=== PATIENT | female | born 1980 | race Caucasian/White ===

== ENCOUNTER 2016-11-26 22:31 | Observation (INO) | payer OTHER ==
[~2016-11-26] VITALS: Ht 149.9 cm; Wt 66.2 kg
[~2016-11-26 22:31] MED LIST: IBUP-1542 PO
[2016-11-27] VITALS (19 sets, daily range): BP systolic 81–118; BP diastolic 35–59; PULSE 55–80; RESP 17; TEMP 98.1; Ht 149.9 cm; Wt 66.2 kg
[2016-11-27 00:19] LABS: URINE BLOOD (Dip) POC 3+ (NEGATIVE)
[2016-11-27 00:36] LABS: BASOPHILS % 0.4 % (0.0-2.0); EOSINOPHILS # 0.2 10^3/ul (0.0-0.5); EOSINOPHILS % 1.9 % (0.0-7.0); HEMATOCRIT 35.4 % (37.0-47.0); HEMOGLOBIN 11.7 g/dl (12.0-16.0); LYMPHOCYTES # 2.5 10^3/ul (0.8-2.9); LYMPHOCYTES % 21.8 % (15.0-51.0); MEAN CORPUSCULAR HEMOGLOBIN 28.7 pg (29.0-33.0); MEAN CORPUSCULAR HGB CONC 33.1 g/dl (32.0-37.0); MEAN CORPUSCULAR VOLUME 86.8 fl (82.0-101.0); MEAN PLATELET VOLUME 11.6 fl (7.4-10.4); MONOCYTE # 0.7 10^3/ul (0.3-0.9); MONOCYTES % 6.5 % (0.0-11.0); NEUTROPHIL # 7.8 10^3/ul (1.6-7.5); PLATELET COUNT 273 10^3/UL (140-415); RED BLOOD COUNT 4.08 10^6/ul (4.20-5.40); RED CELL DISTRIBUTION WIDTH 13.2 % (11.5-14.5); WHITE BLOOD COUNT 11.3 10^3/ul (4.8-10.8)
[2016-11-27 01:01] LABS: ALBUMIN 3.9 g/dl (3.3-4.9); ALBUMIN/GLOBULIN RATIO 1.18; CALCIUM 9.1 mg/dl (8.4-10.2); CREATININE 0.76 mg/dl (0.44-1.00); POTASSIUM 3.5 mmol/L (3.5-5.1); TOTAL PROTEIN 7.2 g/dl (6.1-8.1)
--- NOTE | 2016-11-27 01:33 | RADRPT ---
PROCEDURE: US OB. CLINICAL INDICATION: Vaginal bleeding. Clinical estimated gestational age is 8 weeks 4 days with estimated date of delivery 07/04/2017. TECHNIQUE: Transabdominal and transvaginal views of the pelvis are available for review. COMPARISON: No prior studies are available for comparison. FINDINGS: No intrauterine is seen. There is thickened heterogeneous echotexture endometrium with va scular flow. The thickness of the endometrium equals 1.9 cm. Small Nabothian cyst in cervix. The ri ght ovary measures 2.7 x 0.8 x 1.5 cm and is unremarkable. Color flow and spectral analysis demonst rates normal venous flow in the right ovary. The left ovary measures 2.6 x 1.4 x 2.3 cm and contain s a 1.6 x 1.4 x 1.4 cm likely corpus luteum. Color flow and spectral analysis demonstrates normal a rterial and venous flow in the left ovary. No adnexal mass or free intrapelvic fluid is seen. IMPRESSION: No intrauterine seen. No ectopic seen. Thickened heterogeneous endometrium with vascular flow. Differential diagnosis includes early intrauterine , spontaneous wi th retained products of conception and ectopic . Correlation with serial quantitative beta HCGs and follow-up ultrasound is recommended. RPTAT: HJES .Dixon Frost MD, Date Time Electronically viewed and signed by .Dixon Frost MD, on 11/27/2016 01:32 .S/
--- NOTE | 2016-11-27 04:26 | ERA ---
ER Documentation Chief Complaint Date/Time DATE: 11/27/16 TIME: 04:20 Chief Complaint heavy vag bleeding w/ blood clots today, unknown HPI This is a 36-year-old female A1 with last menstrual period 1-1/2 months ago who recently had a baby 8 months ago presents to the emergency department complaining of heavy vaginal bleeding with blood clots that started today. Patient states that she has been changing her pad every 5 minutes. Patient admits to having pelvic pain stating that it is mild cramping. Patient admits to having nausea and dizziness. She denies any vomiting, diarrhea, constipation. Patient states her last meal was at 7 PM today ROS All systems reviewed and are negative except as per history of present illness. Medications Home Meds Active Scripts Ibuprofen* (Ibuprofen*) 600 Mg Tablet, 600 MG PO Q6H Y for PAIN, #20 TAB 0 Refills Prov:JOSE MEJIA MD 03/17/16 Allergies Allergies: Coded Allergies: No Known Allergy (Unverified , 10/10/12) PMhx/Soc Anesthesia Reaction: No Hx Neurological Disorder: No Hx Respiratory Disorders: No Hx Cardiac Disorders: No Hx Psychiatric Problems: No Hx Miscellaneous Medical Probl: No Hx Alcohol Use: No Hx Substance Use: No Hx Tobacco Use: No Physical Exam Vitals Vital Signs Date Time Temp Pulse Resp B/P Pulse Ox O2 Delivery O2 Flow Rate FiO2 11/26/16 22:35 97.8 89 20 112/70 99 Physical Exam General: well-developed/well-nourished, in no apparent distress, non-toxic appearing HENT: NC/AT Eyes: Conjunctiva normal Neck: Supple Pulm: CTA bilaterally, normal breathing CV: Normal S1S2 GI: Soft, non-distended, normal bowel sounds, mild tender palpation Back: No midline tenderness, no masses, No CVAT Ext: No clubbing, cyanosis, or edema Neuro: Alert and orientated Skin: intact, normal turgor Psych: Normal mood and mentation Result Diagram: 11/27/16 0000 11/27/16 0000 Results 24 hrs Laboratory Tests Test 11/27/16 00:00 11/27/16 00:24 White Blood Count 11.310^3/ul Red Blood Count 4.0810^6/ul Hemoglobin 11.7g/dl Hematocrit 35.4% Mean Corpuscular Volume 86.8fl Mean Corpuscular Hemoglobin 28.7pg Mean Corpuscular Hemoglobin Concent 33.1g/dl Red Cell Distribution Width 13.2% Platelet Count 78748^3/UL Mean Platelet Volume 11.6fl Neutrophils % 69.0% Lymphocytes % 21.8% Monocytes % 6.5% Eosinophils % 1.9% Basophils % 0.4% Nucleated Red Blood Cells % 0.0/100WBC Neutrophils # 7.810^3/ul Lymphocytes # 2.510^3/ul Monocytes # 0.710^3/ul Eosinophils # 0.210^3/ul Basophils # 0.010^3/ul Nucleated Red Blood Cells # 0.010^3/ul Sodium Level 141mmol/L Potassium Level 3.5mmol/L Chloride Level 102mmol/L Carbon Dioxide Level 25mmol/L Anion Gap 18 Blood Urea Nitrogen 12mg/dl Creatinine 0.76mg/dl Glucose Level 114mg/dl Calcium Level 9.1mg/dl Total Bilirubin 0.0mg/dl Direct Bilirubin 0.00mg/dl Indirect Bilirubin 0.0mg/dl Aspartate Amino Transf (AST/SGOT) 15IU/L Alanine Aminotransferase (ALT/SGPT) 20IU/L Alkaline Phosphatase 59IU/L Total Protein 7.2g/dl Albumin 3.9g/dl Globulin 3.30g/dl Albumin/Globulin Ratio 1.18 Beta HCG, Quantitative 43076.0mIU/ml Bedside Urine pH (LAB) 5.5 Bedside Urine Protein (LAB) 1+ Bedside Urine Glucose (UA) Negative Bedside Urine Ketones (LAB) Negative Bedside Urine Blood 3+ Bedside Urine Nitrite (LAB) Negative Bedside Urine Leukocyte Esterase (L Negative Procedures/MDM This is a 36-year-old female A1 presenting to the emergency department with heavy vaginal bleeding and positive urine test today. With no intrauterine noted on ultrasound and a elevated beta-hCG of 12,875 I have consulted the OB labor is Dr. Booker who suggested that patient should be admitted to [facility] for further evaluation and management. Patient is hemodynamically stable for transfer IV access established, patient had mild anemia at 11.7. No leukocytosis. CMP unremarkable. Urinalysis showed hemoglobin. OB ultrasound was done and radiologist stated: No intrauterine seen. No ectopic seen. Thickened heterogeneous endometrium with vascular flow. Differential diagnosis includes early intrauterine , spontaneous with retained products of conception and ectopic . Correlation with serial quantitative beta HCGs and follow-up ultrasound is recommended. Departure Diagnosis: Primary Impression: Excessive vaginal bleeding Condition: Stable ZAFAR DIALLO PA-C Nov 27, 2016 04:26
[2016-11-27] MEDS ORDERED: DEXTROSE 5%-0.45% NACL 1,000 ML IV SCH (09:30)
[2016-11-27] MEDS ORDERED: SEVOFLURANE 15 MIN ONE (11:00)
[2016-11-27] MEDS ORDERED: PROPOFOL 20 ML ONE (11:48)
[2016-11-27] MEDS ORDERED: FENTAnyl 50 MCG/ML VIAL ONE (11:49)
[2016-11-27] MEDS ORDERED: MIDAZOLAM 1 MG/ML 2 ML INJ ONE (11:49)
[2016-11-27] MEDS ORDERED: PHENYLephrine (100 MCG/ML) 5ML SYG ONE (11:55)
[2016-11-27] MEDS ORDERED: CEFAZOLIN 1 GM INJ ONE (11:55)
[2016-11-27] MEDS ORDERED: METOCLOPRAMIDE 10 MG INJ ONE (12:08)
[2016-11-27] MEDS ORDERED: KETOROLAC 30 MG INJ ONE (12:08)
[2016-11-27] MEDS ORDERED: ONDANSETRON 4 MG INJ ONE (12:08)
[2016-11-27] MEDS ORDERED: EPHEDrine SULFATE 50 MG/5 ML SYG ONE (12:23)
[2016-11-27] MEDS ORDERED: ONDANSETRON 4 MG INJ IV PRN ×2 (12:30)
[2016-11-27] MEDS ORDERED: DEXTROSE 5%-LR 1,000 ML IV SCH (12:30)
[2016-11-27] MEDS ORDERED: MEPERIDINE 25 MG INJ IV PRN (12:30)
[2016-11-27] MEDS ORDERED: ALBUMIN HUMAN 5% 250 ML IV PRN (12:30)
[2016-11-27] MEDS ORDERED: FENTAnyl 50 MCG/ML VIAL IV PRN ×3 (12:30)
[2016-11-27] MEDS ORDERED: DIPHENHYDRAMINE 50 MG INJ IV PRN (12:30)
[2016-11-27] MEDS ORDERED: morphine (1 MG/ML) 10ML SYRINGE IV PRN ×3 (12:30)
[2016-11-27] MEDS ORDERED: METOCLOPRAMIDE 10 MG INJ IV PRN (12:30)
[2016-11-27] MEDS ORDERED: OXYCODONE/ACETAMINOPHEN (10/325) TAB PO PRN (12:30)
[2016-11-27] MEDS ORDERED: EPHEDrine SULFATE 50 MG/5 ML SYG IV PRN (12:30)
--- NOTE | 2016-11-27 21:29 | DS ---
Date/Time of Note Date/Time of Note DATE: 11/27/16 TIME: 21:25 Discharge Summary Admission/Discharge Info Admit Date/Time Nov 27, 2016 at 01:54 Discharge Date/Time Nov 27, 2016 at 18:09 Discharge Diagnosis retained placenta Procedures suction curettage Hx of Present Illness s/p 2weeks presented ER with heavy vaginal bleeding ,u/s revealed suggestionof retained tissue.underwent suction curettage postpo H&H down to 11/12 no significant vaginal bleeding noted Hospital Course unevenful Home Meds Active Scripts Ibuprofen* (Ibuprofen*) 600 Mg Tablet, 600 MG PO Q6H Y for PAIN, #20 TAB 0 Refills Prov:JOSE MEJIA MD 03/17/16 Follow-up Plan 2weeks to her OB Primary Care Provider Not On Staff Doctor Time spent on discharge: < 30 minutes Pending Labs Laboratory Tests Test 11/27/16 00:00 11/27/16 00:24 White Blood Count 11.310^3/ul (4.8-10.8) Red Blood Count 4.0810^6/ul (4.20-5.40) Hemoglobin 11.7g/dl (12.0-16.0) Hematocrit 35.4% (37.0-47.0) Mean Corpuscular Volume 86.8fl (82.0-101.0) Mean Corpuscular Hemoglobin 28.7pg (29.0-33.0) Mean Corpuscular Hemoglobin Concent 33.1g/dl (32.0-37.0) Red Cell Distribution Width 13.2% (11.5-14.5) Platelet Count 14869^3/UL (140-415) Mean Platelet Volume 11.6fl (7.4-10.4) Neutrophils % 69.0% (39.0-77.0) Lymphocytes % 21.8% (15.0-51.0) Monocytes % 6.5% (0.0-11.0) Eosinophils % 1.9% (0.0-7.0) Basophils % 0.4% (0.0-2.0) Nucleated Red Blood Cells % 0.0/100WBC (0.0-0.0) Neutrophils # 7.810^3/ul (1.6-7.5) Lymphocytes # 2.510^3/ul (0.8-2.9) Monocytes # 0.710^3/ul (0.3-0.9) Eosinophils # 0.210^3/ul (0.0-0.5) Basophils # 0.010^3/ul (0.0-0.1) Nucleated Red Blood Cells # 0.010^3/ul (0.0-0.0) Sodium Level 141mmol/L (135-144) Potassium Level 3.5mmol/L (3.5-5.1) Chloride Level 102mmol/L (97-110) Carbon Dioxide Level 25mmol/L (21-31) Anion Gap 18 (8-16) Blood Urea Nitrogen 12mg/dl (7-20) Creatinine 0.76mg/dl (0.44-1.00) Glucose Level 114mg/dl (70-220) Calcium Level 9.1mg/dl (8.4-10.2) Total Bilirubin 0.0mg/dl (0.2-1.3) Direct Bilirubin 0.00mg/dl (0.00-0.20) Indirect Bilirubin 0.0mg/dl (0-1.1) Aspartate Amino Transf (AST/SGOT) 15IU/L (15-46) Alanine Aminotransferase (ALT/SGPT) 20IU/L (13-69) Alkaline Phosphatase 59IU/L (42-121) Total Protein 7.2g/dl (6.1-8.1) Albumin 3.9g/dl (3.3-4.9) Globulin 3.30g/dl (1.3-3.2) Albumin/Globulin Ratio 1.18 Beta HCG, Quantitative 44163.0mIU/ml Bedside Urine pH (LAB) 5.5 (5.0-8.5) Bedside Urine Protein (LAB) 1+ (NEGATIVE) Bedside Urine Glucose (UA) Negative (NEGATIVE) Bedside Urine Ketones (LAB) Negative (NEGATIVE) Bedside Urine Blood 3+ (NEGATIVE) Bedside Urine Nitrite (LAB) Negative (NEGATIVE) Bedside Urine Leukocyte Esterase (L Negative (NEGATIVE) ELDER HOWELL MD Nov 27, 2016 21:29
--- NOTE | 2016-11-30 11:44 | OPR ---
Date/Time of Note Date/Time of Note DATE: 11/30/16 TIME: 11:38 Operative Report Free Text/Dictation Procedure: Dilatation and curettage Preop postop diagnosis: Incomplete Anesthesia: General Under satisfactory general anesthesia patient was placed in lithotomy position. Vaginal area were prepped and patient was draped. A pelvic examination was performed ;the uterus was about 7 weeks size there was still blood and blood clot in the vagina .. A weighted speculum was placed inside the vagina and the cervix was picked up with tenaculum. The uterus sounded about 7 cm no further dilatation of the cervix was necessary. Using a 7 mm vacuum curet the entire contents of the uterus was evacuated. Patient already received a gram of Ancef as a prophylactic measure. The specimen sent for pathological examination. She tolerated the procedures well and was transferred to the recovery room in a stable condition. End of dictation thank you TITO BANKS MD Nov 30, 2016 11:44
== END 2016-11-27 18:09 | disposition home or self-care (01) ==
LOC: FTE 22:31 → INTOOBSV 11-27 01:54 → MS1 11-27 01:54
PROVIDERS: ADMIT Obstetrics & Gynecology; ATTEND Obstetrics & Gynecology
DX: O03.4 Incomplete spontaneous abortion without complication (principal); O09.521 Supervision of elderly multigravida, first trimester; Z3A.00 Weeks of gestation of pregnancy not specified
CPT/HCPCS: 59812; 76801; 76817; 80053; 81003; 84702; 85025; 86850; 86900; 86901; 88305; J0690; J1885; J2250; J2370; J2405; J2765; J3010; J7042; J7121; Z7500; Z7502; Z7512; Z7610; G0378